=== PATIENT | female | born 1990 | race Caucasian/White ===

== ENCOUNTER 2018-07-06 18:04 | Inpatient (IN) ==
[2018-07-06] MEDS ORDERED: Naloxone Inj 0.4 MG/ML Vial IV.PUSH PRN (18:51)
[2018-07-06] MEDS ORDERED: Sod Chloride 0.9% Inj 1,000 ML IV.CONT PRN (18:51)
[2018-07-06] MEDS ORDERED: Sodium Chlor 0.9% Inj 500 ML IV.SIG PRN (18:51)
[2018-07-06] MEDS ORDERED: fentaNYL Citrate Inj 100 MCG/2 ML Ampul IV.PUSH PRN ×2 (18:51)
[2018-07-06] MEDS ORDERED: Citric Acid/Sodium Citrate Liq 30 ML UDC PO SCH (19:00)
[2018-07-06] MEDS ORDERED: Sod Chloride 0.9% Inj 1,000 ML IRRIGATION SCH (19:00)
--- NOTE | 2018-07-06 19:08 | P.HPOB ---
History of Present Illness Service: obstetrics Primary Care Physician: NOT REQUIRED Chief Complaint: induction for polyhydramnios at term History of Present Illness: 28 yo G1 with EDC 07/14/18 presents for scheduled labor induction due to polyhydramnios at term. Gestational diabetic, diet controlled. Rubella non- immune. Other complications of include measuring large for dates, EFW 95%tile at 36 weeks. Pt aware of risks of induction and suspected macrosomia, declines option of primary . GBS negative. C/o pelvic pressure and irregular contractions, no leakage of fluid or vaginal bleeding. Good movement. Pain 2/10 low pelvis with radiation to low back. Weeks Gestation:: 39 Para: 0 : 1 - Inpatient Certification I certify that the inpatient services were ordered in accordance with Medicare regulations governing the order. This includes certification that hospital inpatient services are reasonable and necessary and in the case of services not specified as inpatient-only under 42 CFR 419.22(n), that they are appropriately provided as inpatient services in accordance to with the 2-midnight benchmark under 43 CFR 412.3(e) Estimated Total Length of Stay (Days): 5 Plans for Post Hospital Care: Home Review of Systems All other systems reviewed negative except as stated in HPI [facility] - Medical History Medical History: Medical History (Last Updated 07/06/18 @ 19:01 by Suellen Edwards MD) Gestational diabetes (Acute) Hx of wisdom tooth extraction - Family History Family History: Family History (Last Updated 07/06/18 @ 19:02 by Suellen Edwards MD) Other No significant family history - Social History I have reviewed the patient's Social History: Yes - Tobacco History Second Hand Smoke Exposure: No Tobacco Use In Past 30 Days: No Smoking Status: Never smoker - Alcohol History How Often Do You Have a Drink Containing Alcohol: Never - Substance Use History Substance History: No History of Abuse - Travel History History of Recent Travel: No Recent Travel in the [place] Within the Last 8 Weeks: No Recent Travel Out of the Country Within the Last 8 Weeks: No Medications and Allergies Active Medications: Active Medications Citric Acid/Sodium Citrate (Sodium Citrate/Citric Acid Liq) 30 ml PO [employer] MICHAEL Stop: 07/10/18 18:59 Dinoprostone (Cervidil Vag Insert) 10 mg VAGINAL ONCE ONE Stop: 07/06/18 18:52 Fentanyl Citrate (Fentanyl Inj) 50 mcg IV.PUSH Q1H PRN PRN Reason: Pain Scale 3 - 5 Fentanyl Citrate (Fentanyl Inj) 100 mcg IV.PUSH Q1H PRN PRN Reason: PAIN SCALE 6 TO 10 Lactated Ringer's (Lr 1000 Ml Inj) 1,000 mls @ 3,000 mls/hr IV.SIG UNSCH PRN PRN Reason: compromise or epidural Sodium Chloride (Ns Inj) 500 mls @ 1,000 mls/hr IV.SIG UNSCH PRN PRN Reason: SEE LABEL COMMENTS Sodium Chloride (Ns Inj) 1,000 mls @ 100 mls/hr IV.CONT .Q10H PRN PRN Reason: SEE LABEL COMMENTS Sodium Chloride (Ns Inj) 1,000 mls @ 0 mls/hr IRRIGATION .Q0M MICHAEL Stop: 07/07/18 18:59 Oxytocin (Pitocin 30 Units/Ns 500 Ml Premix) 30 units in 500 mls @ 999 mls/hr IV.SIG BOLUS ONE Stop: 07/06/18 19:21 Lidocaine HCl (Xylocaine 1% Inj) 0.1 ml I-DERMAL PRN PRN PRN Reason: For IV start Stop: 07/09/18 18:50 Lidocaine HCl (Xylocaine 1% Inj) 10 ml INFILTRATN PRN PRN PRN Reason: For episiotomy repair Stop: 07/08/18 18:50 Mineral Oil (Muri-Lube Oil) 10 ml TOPICAL PRN PRN PRN Reason: PRN perineal massage Naloxone HCl (Narcan Inj) 0.1 mg IV.PUSH Q2M PRN PRN Reason: for opiate reversal Ondansetron HCl (Zofran Inj) 4 mg IV.PUSH Q6H PRN PRN Reason: NAUSEA OR VOMITING Sodium Chloride (Ns Flush) 2 ml IV.FLUSH BID MICHAEL Sodium Chloride (Ns Flush) 2 ml IV.FLUSH PRN PRN PRN Reason: FLUSH AFTER USING IV ACCESS Allergies Allergy/AdvReac Type Severity Reaction Status Date / Time No Known Allergies Allergy Verified 07/06/18 18:30 Home Medications Medication Instructions Recorded Confirmed Type vit-iron fum-folic ac 1 tab PO DAILY 07/06/18 07/06/18 History [ Vitamin] Exam Vital signs: Vital Signs 07/06/18 18:25 07/06/18 18:32 07/06/18 18:50 Temperature 99.2 F Pulse Rate 96 H 96 H 103 H Respiratory Rate 18 Blood Pressure 139/85 Intake & Output 07/05/18 07/06/18 07/06/18 18:59 06:59 18:59 Weight 101 kg Other: Weight On Admission 101 kg - Constitutional no acute distress - Routine HEENT Exam Head: Present: normocephalic, atraumatic Eye: Present: EOMI, PERRL ENT: Present: mucous membranes moist - Routine Neck Exam Present: supple, full ROM - Routine Chest/Breast/Axilla Exam Chest wall: Absent: tenderness, mass - Routine Respiratory Exam Absent: accessory muscle use, respiratory distress - Routine Cardiovascular Exam Present: RRR. Absent: bradycardia - Routine Abdominal Exam Comments: gravid larger than dates - Routine Extremities Exam Present: edema (b/l LE to shins), pulses intact - Routine Skin Exam Present: intact. Absent: cyanosis - Routine Neurological Exam Present: alert, oriented X3 Results - Labs Group B Strep: Negative Caprini VTE Risk Assessment Caprini VTE Risk Assessment: No/Low Risk (score <= 1) VTE Pharmacological Exception Reason: Epidural catheter Caprini Risk Assessment Model: Point Value = 1 Point Value = 2 Point Value = 3 Point Value = 5 Age 41-60 Minor surgery BMI > 25 kg/m2 Swollen legs Varicose veins or History of unexplained or recurrent spontaneous Oral contraceptives or hormone replacement Sepsis (< 1 month) Serious lung disease, including pneumonia (< 1 month) Abnormal pulmonary function Acute myocardial infarction Congestive heart failure (< 1 month) History of inflammatory bowel disease Medical patient at bed rest Age 61-74 Arthroscopic surgery Major open surgery (> 45 min) Laparoscopic surgery (> 45 min) Malignancy Confined to bed (> 72 hours) Immobilizing plaster cast Central venous access Age >= 75 History of VTE Family history of VTE Factor V Leiden Prothrombin [id number] Lupus anticoagulant Anticardiolipin antibodies Elevated serum homocysteine Heparin-induced thrombocytopenia Other congenital or acquired thrombophilia Stroke (< 1 month) Elective arthroplasty Hip, pelvis, or leg fracture Acute spinal cord injury (< 1 month) Prophylaxis Regimen: Total Risk Factor Score Risk Level Prophylaxis Regimen 0-1 Low Early ambulation 2 Moderate Order ONE of the following: *Sequential Compression Device (SCD) *Heparin 5000 units SQ BID 3-4 Higher Order ONE of the following medications: *Heparin 5000 units SQ TID *Enoxaparin/Lovenox 40 mg SQ daily (WT < 150 kg, CrCl > 30 mL/min) *Enoxaparin/Lovenox 30 mg SQ daily (WT < 150 kg, CrCl > 10-29 mL/min) *Enoxaparin/Lovenox 30 mg SQ BID (WT < 150 kg, CrCl > 30 mL/min) AND/OR *Sequential Compression Device (SCD) 5 or more Highest Order ONE of the following medications: *Heparin 5000 units SQ TID (Preferred with Epidurals) *Enoxaparin/Lovenox 40 mg SQ daily (WT < 150 kg, CrCl > 30 mL/min) *Enoxaparin/Lovenox 30 mg SQ daily (WT < 150 kg, CrCl > 10-29 mL/min) *Enoxaparin/Lovenox 30 mg SQ BID (WT < 150 kg, CrCl > 30 mL/min) AND *Sequential Compression Device (SCD) Assessment and Plan - Diagnosis (1) 39 weeks gestation of Code(s): Z3A.39 - 39 weeks gestation of Status: Acute (2) Polyhydramnios Code(s): O40.9XX0 - Polyhydramnios, unspecified trimester, not applicable or unspecified Status: Acute (3) Gestational diabetes Code(s): O24.419 - Gestational diabetes mellitus in , unspecified control Status: Acute - Plan 28 yo G1 with funez male IUP at 38w6d admit for labor induction due to polyhydramnios. 1) IOL: start with cervidil, pt aware she is unfavorable for induction and suspected macrosomic fetus; pt aware or risks of induction including distress and possibility of ; consents signed; re-evaluate in AM for additional induction methods as needed 2) GBS negative 3) Rubella non-immune - recommend vaccine PP 4) gestational diabetes, diet controlled: weekly testing had been reassuring with 03/09 BPP yesterday but PAUL 26cm 5) polyhydramnios: PAUL 26cm, known gestational diabetic 6) status: vertex, male, EFW >9#; shoulder dystocia precautions if pt progresses; Cat I tracing on admission note: pt had Tdap in office 06/10/2018, declined Flu vaccine dispo: not meeting criteria, anticipate d/c 2-3d PP Discharge Planning: routine
[2018-07-06] MEDS ORDERED: Oxytocin 30 Units/500ml Premix 30 UNITS/500 ML BAG IV.SIG ONE (19:30)
[2018-07-06 20:50] LABS: Baso % (Auto) 0.3 % (0.0-2.0); Eos # (Auto) 0.1 th/mm3 (0.0-0.4); Hematocrit 40.2 % (35.0-46.0); Hemoglobin 13.3 gm/dL (11.6-15.3); Lymph # (Auto) 1.6 th/mm3 (1.0-4.8); Lymph % (Auto) 16.6 % (9.0-44.0); Mean Corpuscular HGB Conc 33.1 % (32.0-36.0); Mean Corpuscular Hemoglobin 31.6 pg (27.0-34.0); Mean Corpuscular Volume 95.5 fL (80.0-100.0); Mean Platelet Volume 10.8 fL (7.0-11.0); Mono # (Auto) 0.8 th/mm3 (0.0-0.9); Mono % (Auto) 7.8 % (0.0-8.0); Neut # (Auto) 7.3 th/mm3 (1.8-7.7); Neut % (Auto) 74.3 % (16.0-70.0); Platelet Count 176 th/mm3 (150-450); Red Blood Count 4.21 mil/mm3 (4.00-5.30); Red Cell Distribution Width 14.5 % (11.6-17.2); White Blood Count 9.8 th/mm3 (4.0-11.0)
[2018-07-06 21:00] LABS: Amphetamine Urine With Conf Neg (Neg); Benzodiazepine Urine With Conf Neg (Neg); Bilirubin,Urine Negative (Negative); Clarity,Urine Hazy (Clear); Cocaine Urine With Conf Neg (Neg); Color,Urine Straw (Yellw/Straw); Glucose,Urine (UA) Negative (Negative); Leukocyte Esterase,Urine Trace (Negative); Mucus,Urine Few /lpf (Occasional); Nitrite,Urine Negative (Negative); Opiates Urine With Conf Neg (Neg); Specific Gravity,Urine 1.005 (1.002-1.035); Squamous Epithelial Cell,Urine 1 /hpf (0-5)
[2018-07-06 21:14] LABS: Anion Gap 8 meq/L (5-15); Aspartate Aminotransferase 14 U/L (15-37); Blood Urea Nitrogen 13 mg/dL (7-18); Carbon Dioxide 23.7 meq/L (21.0-32.0); Chloride 105 meq/L (98-107); Glomerular Filtration Rate Greater Than 89 mL/min (>89); Glucose,Random 85 mg/dL (74-106); Potassium 3.4 meq/L (3.5-5.1); Sodium 137 meq/L (136-145)
[2018-07-06 21:15] LABS: Alanine Aminotransferase 17 U/L (10-53); Cannabinoid Urine With Conf Neg (Neg)
[2018-07-06 21:17] LABS: Alkaline Phosphatase 120 U/L (45-117); Total Protein 6.9 g/dL (6.4-8.2)
[2018-07-06] MEDS ORDERED: Zolpidem Tartrate 5 MG Tablet PO ONE (22:30)
[2018-07-07] MEDS ORDERED: Oxytocin 30 Units/500ml Premix 30 UNITS/500 ML BAG IV.CONT PRN (08:03)
--- NOTE | 2018-07-07 08:12 | P.OBGPN ---
To bedside to evaluate patient. Cervidil removed by nurses just prior to my arrival. SVE /-3. Able to AROM with copious clear fluid. IUPC placed. Will order pitocin. Ok for regular diet for breakfast then clears after that. D/w pt again suspect macrosomia and may need if labor does not progress. Pt voices understanding. Will re-evaluate later today.
[2018-07-07] MEDS ORDERED: fentaNYL 2MCG-Bupiv 0.125% Epi 150 ML EPIDURAL ONE (13:32)
[2018-07-07] MEDS ORDERED: Lidocaine PF 1% Inj 5 ML Vial ONE (14:08)
[2018-07-07] MEDS ORDERED: Sodium Chlor 0.9% Inj 10 ML ONE (14:08)
[2018-07-07] MEDS ORDERED: Lidocaaine 1.5%/Epinephrine 1:200,000 PF Inj 5 ML Amp ONE (14:08)
[2018-07-07] MEDS ORDERED: fentaNYL Citrate Inj 100 MCG/2 ML Ampul EPIDURAL ONE (15:00)
[2018-07-07] MEDS ORDERED: fentaNYL 2MCG-Bupiv 0.125% Epi 150 ML EPIDURAL PRN (15:00)
--- NOTE | 2018-07-07 18:41 | P.OBGPN ---
Pt examined at 5pm and again now. SVE /-3, significant molding and asynclitic; no change appreciated between exams. Projected weight 9+ pounds based on extrapolation from prior growth u/s. Discussed with patient that she has likely cephalopelvic disproportion and needs a CD. Patient discussed with Dr. Edwards who agrees with proceeding with CD delivery. Reviewed surgery, postoperative care. Discussed that she can have a tolac if this is a ltcd.
[2018-07-07] MEDS ORDERED: ceFAZolin 2 GM Premix Inj 2 GM/50 ML PIGGYBACK IV.SIG PRN (18:42)
[2018-07-07] MEDS ORDERED: Citric Acid/Sodium Citrate Liq 30 ML UDC PO SCH (18:45)
[2018-07-07] MEDS ORDERED: Morphine Sulfate PF Inj 5 MG/10 ML Ampul ONE (19:32)
[2018-07-07] MEDS ORDERED: Zolpidem Tartrate 5 MG Tablet PO PRN (20:35)
[2018-07-07] MEDS ORDERED: Oxytocin 30 Units/500ml Premix 30 UNITS/500 ML BAG IV.SIG ONE (20:35)
[2018-07-07] MEDS ORDERED: Simethicone 80 MG Chew Tablet PO PRN (20:35)
--- NOTE | 2018-07-07 20:52 | P.OBDELI ---
Procedure Note - Pre Op Diagnosis (1) Arrested active phase of labor (2) 39 weeks gestation of (3) Polyhydramnios (4) Gestational diabetes - Post Op Diagnosis (1) S/P primary low transverse (2) 39 weeks gestation of (3) Polyhydramnios (4) Gestational diabetes (5) Arrested active phase of labor Performed by: Suellen Edwards MD Procedure: Primary Low Transverse Section Indication for Delivery: Other (arrest of descent in labor) Informed Consent Obtained: For anesthesia, For procedure Confirmed Correct: Patient, Procedure, Site, Time-out taken Anesthesia: Epidural Medication Prior to Procedure: As documented in eMAR Monitoring During Procedure: Blood pressure monitoring, pipe coremaker, doppler, Pulse oximetry Urinary Catheter: ml urine output (300), Other (already in place as part of labor process) Sterile Preparation: Duraprep, In usual fashion, With drapes to expose affected area Position: Supine with wedge to right side - Operative Features Skin Incision: Pfannenstiel Uterine Incision: Low transverse w/knife / scissors Membranes Ruptured: Previously, Amount of liquid (copious), Appearance of fluid (clear) Presentation: Vertex Status of : Viable, Cord blood, Nursery present Placenta Delivered: Intact Medications: Antibiotics (ancef 2g IV) Estimated blood loss (mL): 700 Procedure Tolerated: Well Maternal Condition: Stable Baby Condition: Stable Procedure in Detail: see dictated op note for full details - Infant : Male Male A Infant Delivery Date: 07/07/18 Delivery Time: 20:01 Weight: 4.06 kg Delivery of : Uneventful score (1 min): 9 score (5 min): 9
[2018-07-07] MEDS ORDERED: Oxytocin 30 Units/500ml Premix 30 UNITS/500 ML BAG ONE (22:09)
--- NOTE | 2018-07-07 22:09 | MP ---
cc: Suellen Edwards MD DATE OF OPERATION: 07/07/2018 PREOPERATIVE DIAGNOSES: 1. Tinajero intrauterine at 39 weeks. 2. Gestational diabetes. 3. Polyhydramnios. 4. Arrested active phase of labor. POSTOPERATIVE DIAGNOSES: 1. Tinajero intrauterine at 39 weeks. 2. Gestational diabetes. 3. Polyhydramnios. 4. Arrested active phase of labor. 5. Postoperative day #0. INDICATIONS: Marylou Amaya is a 28-year-old 1, now para 1-0-0-1, who was seen and evaluated in the office during her care with gestational diabetes, which was diet controlled, but due to this diagnosis, she was receiving weekly testing, which at 38 weeks and 6 days showed a diagnosis polyhydramnios. As such, it was recommended that the patient be induced. She was brought in on the evening of 07/06/2018. With a Cervidil induction method, she progressed to 5 cm but never progressed past a -3 station. Due to suspected cephalopelvic disproportion and macrosomia, it was discussed with the patient the recommendation for delivery. The patient consented and was taken for procedure. PROCEDURE PERFORMED: Primary low transverse delivery. SURGEON: Suellen Edwards MD TYPE OF ANESTHESIA: Epidural. ESTIMATED BLOOD LOSS: 700 mL. INTRAVENOUS FLUID REPLACEMENT: 1500 mL. URINE OUTPUT: 200 mL of clear urine draining in the Sherman bag at the end of the procedure. PROPHYLAXIS: Ancef 2 grams was given preoperatively and SCDs were on and functioning throughout the entire case. COMPLICATIONS: None. COUNTS: Sponge, lap, instrument and needle counts were correct x 2 at the conclusion of the procedure. INTRAOPERATIVE FINDINGS: Include a vigorous viable male infant weighing 4060 grams, correlating to 8 pounds, 15.2 ounces, and was in the vertex position, but asynclitic with significant caput, Apgars of 9 and 9, clear amniotic fluid, normal intact placenta. Patient has normal-appearing bladder, bilateral fallopian tubes and ovaries. SPECIMENS: None. PROCEDURE IN DETAIL: After reviewing the informed consent, the patient was taken to the operating suite, where a timeout was performed to identify the patient, the planned procedure and any known allergies to drugs or drug products. The patient's epidural and Sherman catheter were already in place as part of the labor process. The patient was laid in dorsal supine position and the abdomen was prepped and draped in normal sterile fashion. A scalpel was used to make a Pfannenstiel-type skin incision. The incision was then brought down to the underlying layer of fascia with the Bovie. The fascia was incised in the midline. The incision was extended laterally with sharp dissection using Heart scissors. Superior and inferior aspects of the fascial incision were elevated with Livia clamps. Rectus muscles were dissected off sharply with Heart scissors. Rectus muscles were then in the midline. Peritoneum was elevated with a hemostat, entered sharply with Metzenbaum scissors and incision was extended laterally with good visualization of intra-abdominal contents. A bladder blade was placed. Bladder flap was not made. A low transverse uterine incision was made with the scalpel. This was extended bluntly. 's head was grasped, flexed and elevated out through the incision. With gentle maneuvering, the rest of the 's body delivered. was immediately crying and vigorous upon delivery. Delayed cord clamping of 45 seconds was performed. was then handed off to the waiting nursery staff. Cord blood sample was taken. Placenta was delivered using gentle cord traction and fundal massage. Uterus was then exteriorized and cleared of all clots and debris with sterile moist lap sponges. The hysterotomy was repaired in a double-layer, first in a running locked layer and then in an imbricating layer with #1 chromic. The posterior cul-de-sac was irrigated copiously with warm sterile saline. The uterus was returned to the abdomen. The repaired hysterotomy was reexamined and excellent hemostasis was noted. A layer of Interceed was placed over the hysterotomy to act as an adhesion barrier. The peritoneum was then closed in a running layer of 2-0 chromic. The fascia was closed in a running layer with #1 Vicryl. The subcutaneous tissue was irrigated and hemostasis was ensured with the Bovie. A series of interrupted sutures using 2-0 chromic was used to close the subcutaneous space. The skin was then closed in a subcuticular fashion with 3-0 Monocryl. The skin was cleaned and dried and Steri-Strips were placed as well as a standard dressing. The procedure concluded at this point. The patient tolerated the procedure well without complication. DISPOSITION: The patient's estimated length of stay is 3 postoperative days. is nursery status. MD Geoff Heard , 08:57 PM , 09:05 PM MISSY
[2018-07-07] MEDS ORDERED: Naloxone Inj 0.4 MG/ML Vial IV.PUSH PRN (22:32)
[2018-07-08] MEDS ORDERED: Oxytocin 30 Units/500ml Premix 30 UNITS/500 ML BAG IV.SIG PRN (01:35)
[2018-07-08 06:08] LABS: Baso % (Auto) 0.1 % (0.0-2.0); Hematocrit 31.7 % (35.0-46.0); Hemoglobin 10.8 gm/dL (11.6-15.3); Lymph % (Auto) 5.7 % (9.0-44.0); Mean Corpuscular Hemoglobin 32.4 pg (27.0-34.0); Mean Corpuscular Volume 95.3 fL (80.0-100.0); Mean Platelet Volume 10.4 fL (7.0-11.0); Mono # (Auto) 1.6 th/mm3 (0.0-0.9); Mono % (Auto) 8.9 % (0.0-8.0); Neut # (Auto) 15.3 th/mm3 (1.8-7.7); Neut % (Auto) 85.3 % (16.0-70.0); Platelet Count 153 th/mm3 (150-450); Red Blood Count 3.33 mil/mm3 (4.00-5.30); Red Cell Distribution Width 14.5 % (11.6-17.2); White Blood Count 17.9 th/mm3 (4.0-11.0)
--- NOTE | 2018-07-08 07:37 | P.PNOB ---
Subjective Post op day: 1 Interval history: POD#1; stable, doing well Objective Vital Signs/I&O: Vital Signs 07/07/18 08:20 07/07/18 09:45 07/07/18 10:12 Temperature 99.4 F Pulse Rate 86 100 H 97 H Respiratory Rate 18 18 18 Blood Pressure 122/69 124/73 107/68 07/07/18 10:45 07/07/18 11:14 07/07/18 11:45 Temperature Pulse Rate 98 H 92 H 90 Respiratory Rate 18 18 Blood Pressure 118/70 116/65 122/74 07/07/18 12:23 07/07/18 12:24 07/07/18 12:25 Temperature 98.5 F Pulse Rate 91 H Respiratory Rate 18 Blood Pressure 122/64 07/07/18 12:58 07/07/18 13:27 07/07/18 13:28 Temperature Pulse Rate 78 87 Respiratory Rate 18 Blood Pressure 110/61 109/63 07/07/18 13:56 07/07/18 14:05 07/07/18 14:50 Temperature Pulse Rate 107 H 89 88 Respiratory Rate 18 Blood Pressure 128/78 101/56 L 119/67 07/07/18 15:01 07/07/18 15:15 07/07/18 16:13 Temperature Pulse Rate 90 88 Respiratory Rate 18 Blood Pressure 129/69 110/68 07/07/18 16:14 07/07/18 17:16 07/07/18 17:17 Temperature 99.4 F Pulse Rate 85 94 H Respiratory Rate 18 Blood Pressure 118/50 L 106/62 07/07/18 17:53 07/07/18 18:27 07/07/18 19:20 Temperature 99.4 F Pulse Rate 95 H 92 H Respiratory Rate 18 Blood Pressure 112/61 119/60 07/07/18 20:45 07/07/18 21:00 07/07/18 21:15 Temperature 99.0 F Pulse Rate 91 H 89 85 Respiratory Rate 18 16 16 Blood Pressure 102/50 L 113/58 L 99/55 L 07/07/18 21:30 07/07/18 21:45 07/07/18 22:01 Temperature 98.4 F Pulse Rate 79 78 Respiratory Rate 17 18 Blood Pressure 109/47 L 113/56 L 07/07/18 22:30 07/08/18 02:00 07/08/18 05:00 Temperature 98.3 F 98.3 F 98.5 F Pulse Rate 73 72 72 Respiratory Rate 18 Blood Pressure 116/59 L 116/89 109/69 Intake & Output 07/07/18 07/08/18 07/08/18 18:59 06:59 18:59 Intake Total 100 / 100 Balance 100 / 100 Intake: IV 100 / 100 Ofirmev Inj 1,000 mg In 100 ml 100 / 100 @ 400 mls/hr IV.SIG ONCE ONE Rx #:[id number] Result Diagrams: 07/08/18 04:47 07/06/18 18:30 Objective Remarks: GENERAL: Well-nourished, well-developed patient. CARDIOVASCULAR: Regular rate and rhythm without murmurs, gallops, or rubs. RESPIRATORY: Breath sounds equal bilaterally. No accessory muscle use. ABDOMEN/GI: Abdomen soft, non-tender, bowel sounds present. Incision: Clean, dry and intact. Fundus: Firm, non-tender at umbilicus. GENITOURINARY: Light to moderate bleeding. EXTREMITIES: No cyanosis or edema, non-tender, without signs of DVT. Medications and IVs: Active Medications Acetaminophen (Tylenol) 650 mg PO Q6H PRN PRN Reason: PAIN SCALE 1 TO 2 Diphenhydramine HCl (Benadryl) 50 mg PO Q6H PRN PRN Reason: MILD TO MODERATE ITCHING Stop: 07/08/18 22:31 Diphenhydramine HCl (Benadryl Inj) 25 mg IV.PUSH Q6H PRN PRN Reason: MILD TO MODERATE ITCHING Stop: 07/08/18 22:31 Diphtheria/Pertussis/Tetanus Vacc (Boostrix Vaccine Inj) 0.5 ml IM .ONCE ONE Stop: 07/08/18 16:01 Ephedrine Sulfate (Ephedrine/Ns Syringe) 10 mg IV.PUSH UNSCH PRN PRN Reason: SEE LABEL COMMENTS Stop: 07/08/18 14:36 Sodium Chloride (Ns Inj) 500 mls @ 1,000 mls/hr IV.SIG UNSCH PRN PRN Reason: SEE LABEL COMMENTS Sodium Chloride (Ns Inj) 1,000 mls @ 100 mls/hr IV.CONT .Q10H PRN PRN Reason: SEE LABEL COMMENTS Cefazolin Sodium/Dextrose (Ancef 2 Gm Premix Inj) 2 gm in 50 mls @ 100 mls/hr IV.SIG [employer]DER PRN PRN Reason: SEE DOSE INSTRUCTIONS Stop: 07/08/18 18:41 Last Admin: 07/07/18 19:39 Dose: 100 mls/hr Lactated Ringer's (Lr 1000 Ml Inj) 1,000 mls @ 100 mls/hr IV.CONT .Q10H MICHAEL Stop: 07/08/18 21:34 Last Admin: 07/08/18 03:34 Dose: 100 mls/hr Oxytocin (Pitocin 30 Units/Ns 500 Ml Premix) 30 units in 500 mls @ 100 mls/hr IV.SIG UNSCH PRN PRN Reason: Heavy bleeding Ibuprofen (Motrin) 800 mg PO Q8H PRN PRN Reason: cramping Ketorolac Tromethamine (Toradol Inj) 30 mg IM Q6H PRN PRN Reason: SEE LABEL COMMENTS Stop: 07/12/18 20:34 Last Admin: 07/08/18 05:52 Dose: 30 mg Lidocaine HCl (Xylocaine 1% Inj) 0.1 ml I-DERMAL PRN PRN PRN Reason: For IV start Stop: 07/09/18 18:50 Lidocaine HCl (Xylocaine 1% Inj) 10 ml INFILTRATN PRN PRN PRN Reason: For episiotomy repair Stop: 07/08/18 18:50 Measles/Mumps/Rubella Vaccine Live (M-M-R Ii Vaccine Inj) 0.5 ml SQ .ONCE ONE Stop: 07/08/18 16:01 Mineral Oil (Muri-Lube Oil) 10 ml TOPICAL PRN PRN PRN Reason: PRN perineal massage Miscellaneous Information (Misc Information) 1 each OTHER UNSCH PRN PRN Reason: SEE LABEL COMMENTS Stop: 07/08/18 14:36 Miscellaneous Information (Misc Information) 1 each OTHER UNSCH PRN PRN Reason: SEE LABEL COMMENTS Stop: 07/08/18 14:36 Miscellaneous Information (Misc Nursing Information) 1 each OTHER UNSCH PRN PRN Reason: SEE LABEL COMMENTS Stop: 07/08/18 22:31 Miscellaneous Information (Misc Nursing Information) 1 each OTHER UNSCH PRN PRN Reason: SEE LABEL COMMENTS Stop: 07/08/18 22:31 Naloxone HCl (Narcan Inj) 0.1 mg IV.PUSH Q2M PRN PRN Reason: for opiate reversal Naloxone HCl (Narcan Inj) 0.4 mg IV.PUSH UNSCH PRN PRN Reason: SEE LABEL COMMENTS Stop: 07/08/18 22:31 Ondansetron HCl (Zofran Inj) 4 mg IV.PUSH Q6H PRN PRN Reason: NAUSEA OR VOMITING Oxycodone/Acetaminophen (Percocet 5/325 Mg) 1 tab PO Q4H PRN PRN Reason: PAIN SCALE 3 TO 5 Oxycodone/Acetaminophen (Percocet 5/325 Mg) 2 tab PO Q4H PRN PRN Reason: PAIN SCALE 6 TO 10 Senna/Docusate Sodium (Vicki-Colace) 2 tab PO Q12H PRN PRN Reason: CONSTIPATION Simethicone (Mylicon Chew) 80 mg PO QID PRN PRN Reason: FLATULENCE Sodium Chloride (Ns Flush) 2 ml IV.FLUSH BID MICHAEL Last Admin: 07/07/18 21:48 Dose: Not Given Sodium Chloride (Ns Flush) 2 ml IV.FLUSH PRN PRN PRN Reason: FLUSH AFTER USING IV ACCESS Zolpidem Tartrate (Ambien) 5 mg PO HS PRN PRN Reason: INSOMNIA Assessment and Plan - Diagnosis (1) 39 weeks gestation of Code(s): Z3A.39 - 39 weeks gestation of Status: Acute (2) Polyhydramnios Code(s): O40.9XX0 - Polyhydramnios, unspecified trimester, not applicable or unspecified Status: Acute (3) Gestational diabetes Code(s): O24.419 - Gestational diabetes mellitus in , unspecified control Status: Acute - Plan 28 yo G1 with funez male IUP at 38w6d admit for labor induction due to polyhydramnios. 1) IOL: start with cervidil, pt aware she is unfavorable for induction and suspected macrosomic fetus; pt aware or risks of induction including distress and possibility of ; consents signed; re-evaluate in AM for additional induction methods as needed 2) GBS negative 3) Rubella non-immune - recommend vaccine PP 4) gestational diabetes, diet controlled: weekly testing had been reassuring with 03/09 BPP yesterday but PAUL 26cm 5) polyhydramnios: PAUL 26cm, known gestational diabetic 6) status: vertex, male, EFW >9#; shoulder dystocia precautions if pt progresses; Cat I tracing on admission note: pt had Tdap in office 06/10/2018, declined Flu vaccine dispo: not meeting criteria, anticipate d/c 2-3d PP. 07/08/18 POD#1, s/p LTCD, stable, advance care,activity. Discharge Planning: routine
[2018-07-08] MEDS ORDERED: Measles/Mumps/Rubella Vaccine Inj 0.5 ML Vial SQ ONE (16:00)
[2018-07-08] MEDS ORDERED: Diphtheria/Tetanus/Pertussis Vaccine Inj 0.5 ML Syringe IM ONE (16:00)
[2018-07-08] MEDS: Acetaminophen 325 MG Tablet PO PRN (19:54)
[2018-07-08] MEDS: Senna/Docusate Sodium 8.6/50 MG Tablet PO PRN (19:55)
[2018-07-09] MEDS: Acetaminophen 325 MG Tablet PO PRN ×2 (02:05→11:36)
--- NOTE | 2018-07-09 10:27 | P.PNOB ---
Subjective Post op day: 2 Interval history: POD#2, Doing well, pain well controlled, able to ambulate ,discussed discharge plan for tomorrow Objective Vital Signs/I&O: Vital Signs 07/08/18 20:00 07/09/18 08:00 Temperature 97.9 F 98.8 F Pulse Rate 85 87 Respiratory Rate 18 18 Blood Pressure 107/61 101/62 Intake & Output 07/08/18 07/09/18 07/09/18 18:59 06:59 18:59 Output Total 1100 / 1100 Balance -1100 / -1100 Output: Urine Amount (Catheter) 1100 / 1100 Straight 1100 / 1100 Result Diagrams: 07/08/18 04:47 07/06/18 18:30 Objective Remarks: GENERAL: Well-nourished, well-developed patient. CARDIOVASCULAR: Regular rate and rhythm without murmurs, gallops, or rubs. RESPIRATORY: Breath sounds equal bilaterally. No accessory muscle use. ABDOMEN/GI: Abdomen soft, non-tender, bowel sounds present. Incision: Clean, dry and intact. Fundus: Firm, non-tender at umbilicus. GENITOURINARY: Light to moderate bleeding. EXTREMITIES: No cyanosis or edema, non-tender, without signs of DVT. Medications and IVs: Active Medications Acetaminophen (Tylenol) 650 mg PO Q6H PRN PRN Reason: PAIN SCALE 1 TO 2 Last Admin: 07/09/18 02:05 Dose: 650 mg Sodium Chloride (Ns Inj) 500 mls @ 1,000 mls/hr IV.SIG UNSCH PRN PRN Reason: SEE LABEL COMMENTS Sodium Chloride (Ns Inj) 1,000 mls @ 100 mls/hr IV.CONT .Q10H PRN PRN Reason: SEE LABEL COMMENTS Oxytocin (Pitocin 30 Units/Ns 500 Ml Premix) 30 units in 500 mls @ 100 mls/hr IV.SIG UNSCH PRN PRN Reason: Heavy bleeding Ibuprofen (Motrin) 800 mg PO Q8H PRN PRN Reason: cramping Last Admin: 07/09/18 10:17 Dose: 800 mg Ketorolac Tromethamine (Toradol Inj) 30 mg IM Q6H PRN PRN Reason: SEE LABEL COMMENTS Stop: 07/12/18 20:34 Last Admin: 07/08/18 05:52 Dose: 30 mg Lidocaine HCl (Xylocaine 1% Inj) 0.1 ml I-DERMAL PRN PRN PRN Reason: For IV start Stop: 07/09/18 18:50 Mineral Oil (Muri-Lube Oil) 10 ml TOPICAL PRN PRN PRN Reason: PRN perineal massage Naloxone HCl (Narcan Inj) 0.1 mg IV.PUSH Q2M PRN PRN Reason: for opiate reversal Ondansetron HCl (Zofran Inj) 4 mg IV.PUSH Q6H PRN PRN Reason: NAUSEA OR VOMITING Ondansetron HCl (Zofran Odt) 4 mg PO Q6H PRN PRN Reason: NAUSEA Oxycodone/Acetaminophen (Percocet 5/325 Mg) 1 tab PO Q4H PRN PRN Reason: PAIN SCALE 3 TO 5 Oxycodone/Acetaminophen (Percocet 5/325 Mg) 2 tab PO Q4H PRN PRN Reason: PAIN SCALE 6 TO 10 Senna/Docusate Sodium (Vicki-Colace) 2 tab PO Q12H PRN PRN Reason: CONSTIPATION Last Admin: 07/08/18 19:55 Dose: 2 tab Simethicone (Mylicon Chew) 80 mg PO QID PRN PRN Reason: FLATULENCE Sodium Chloride (Ns Flush) 2 ml IV.FLUSH BID MICHAEL Last Admin: 07/09/18 03:52 Dose: Not Given Sodium Chloride (Ns Flush) 2 ml IV.FLUSH PRN PRN PRN Reason: FLUSH AFTER USING IV ACCESS Zolpidem Tartrate (Ambien) 5 mg PO HS PRN PRN Reason: INSOMNIA Assessment and Plan - Diagnosis (1) 39 weeks gestation of Code(s): Z3A.39 - 39 weeks gestation of Status: Acute (2) Polyhydramnios Code(s): O40.9XX0 - Polyhydramnios, unspecified trimester, not applicable or unspecified Status: Acute (3) Gestational diabetes Code(s): O24.419 - Gestational diabetes mellitus in , unspecified control Status: Acute - Plan 28 yo G1 with funez male IUP at 38w6d admit for labor induction due to polyhydramnios. 1) IOL: start with cervidil, pt aware she is unfavorable for induction and suspected macrosomic fetus; pt aware or risks of induction including distress and possibility of ; consents signed; re-evaluate in AM for additional induction methods as needed 2) GBS negative 3) Rubella non-immune - recommend vaccine PP 4) gestational diabetes, diet controlled: weekly testing had been reassuring with 03/09 BPP yesterday but PAUL 26cm 5) polyhydramnios: PAUL 26cm, known gestational diabetic 6) status: vertex, male, EFW >9#; shoulder dystocia precautions if pt progresses; Cat I tracing on admission note: pt had Tdap in office 06/10/2018, declined Flu vaccine dispo: not meeting criteria, anticipate d/c 2-3d PP. 07/09/18 POD#2, s/p LTCD, stable, advance care,activity as tolerated, plan for d /c tomorrow, infant circ. today. Discharge Planning: routine; POD#3
[2018-07-09] MEDS: Senna/Docusate Sodium 8.6/50 MG Tablet PO PRN (18:15)
[2018-07-10] MEDS: Senna/Docusate Sodium 8.6/50 MG Tablet PO PRN (11:12)
--- NOTE | 2018-07-10 11:42 | P.PNOB ---
Subjective Post op day: 3 Interval history: POD#3, Stable, doing well, discharge planning Objective Vital Signs/I&O: Vital Signs 07/09/18 19:40 07/10/18 07:45 Temperature 98.3 F 98.2 F Pulse Rate 62 86 Respiratory Rate 18 16 Blood Pressure 117/65 121/68 Result Diagrams: 07/08/18 04:47 07/06/18 18:30 Objective Remarks: GENERAL: Well-nourished, well-developed patient. CARDIOVASCULAR: Regular rate and rhythm without murmurs, gallops, or rubs. RESPIRATORY: Breath sounds equal bilaterally. No accessory muscle use. ABDOMEN/GI: Abdomen soft, non-tender, bowel sounds present. Incision: Clean, dry and intact. Fundus: Firm, non-tender at umbilicus. GENITOURINARY: Light to moderate bleeding. EXTREMITIES: No cyanosis or edema, non-tender, without signs of DVT. Medications and IVs: Active Medications Acetaminophen (Tylenol) 650 mg PO Q6H PRN PRN Reason: PAIN SCALE 1 TO 2 Last Admin: 07/09/18 11:36 Dose: 650 mg Sodium Chloride (Ns Inj) 500 mls @ 1,000 mls/hr IV.SIG UNSCH PRN PRN Reason: SEE LABEL COMMENTS Sodium Chloride (Ns Inj) 1,000 mls @ 100 mls/hr IV.CONT .Q10H PRN PRN Reason: SEE LABEL COMMENTS Oxytocin (Pitocin 30 Units/Ns 500 Ml Premix) 30 units in 500 mls @ 100 mls/hr IV.SIG UNSCH PRN PRN Reason: Heavy bleeding Ibuprofen (Motrin) 800 mg PO Q8H PRN PRN Reason: cramping Last Admin: 07/10/18 04:17 Dose: 800 mg Ketorolac Tromethamine (Toradol Inj) 30 mg IM Q6H PRN PRN Reason: SEE LABEL COMMENTS Stop: 07/12/18 20:34 Last Admin: 07/08/18 05:52 Dose: 30 mg Mineral Oil (Muri-Lube Oil) 10 ml TOPICAL PRN PRN PRN Reason: PRN perineal massage Naloxone HCl (Narcan Inj) 0.1 mg IV.PUSH Q2M PRN PRN Reason: for opiate reversal Ondansetron HCl (Zofran Inj) 4 mg IV.PUSH Q6H PRN PRN Reason: NAUSEA OR VOMITING Ondansetron HCl (Zofran Odt) 4 mg PO Q6H PRN PRN Reason: NAUSEA Oxycodone/Acetaminophen (Percocet 5/325 Mg) 1 tab PO Q4H PRN PRN Reason: PAIN SCALE 3 TO 5 Last Admin: 07/10/18 04:17 Dose: 1 tab Oxycodone/Acetaminophen (Percocet 5/325 Mg) 2 tab PO Q4H PRN PRN Reason: PAIN SCALE 6 TO 10 Senna/Docusate Sodium (Vicki-Colace) 2 tab PO Q12H PRN PRN Reason: CONSTIPATION Last Admin: 07/10/18 11:12 Dose: 2 tab Simethicone (Mylicon Chew) 80 mg PO QID PRN PRN Reason: FLATULENCE Sodium Chloride (Ns Flush) 2 ml IV.FLUSH BID MICHAEL Last Admin: 07/10/18 05:23 Dose: Not Given Sodium Chloride (Ns Flush) 2 ml IV.FLUSH PRN PRN PRN Reason: FLUSH AFTER USING IV ACCESS Zolpidem Tartrate (Ambien) 5 mg PO HS PRN PRN Reason: INSOMNIA Assessment and Plan - Diagnosis (1) 39 weeks gestation of Code(s): Z3A.39 - 39 weeks gestation of Status: Acute (2) Polyhydramnios Code(s): O40.9XX0 - Polyhydramnios, unspecified trimester, not applicable or unspecified Status: Acute (3) Gestational diabetes Code(s): O24.419 - Gestational diabetes mellitus in , unspecified control Status: Acute - Plan 28 yo G1 with funez male IUP at 38w6d admit for labor induction due to polyhydramnios. 1) IOL: start with cervidil, pt aware she is unfavorable for induction and suspected macrosomic fetus; pt aware or risks of induction including distress and possibility of ; consents signed; re-evaluate in AM for additional induction methods as needed 2) GBS negative 3) Rubella non-immune - recommend vaccine PP 4) gestational diabetes, diet controlled: weekly testing had been reassuring with 8/8 BPP yesterday but PAUL 26cm 5) polyhydramnios: PAUL 26cm, known gestational diabetic 6) status: vertex, male, EFW >9#; shoulder dystocia precautions if pt progresses; Cat I tracing on admission note: pt had Tdap in office 06/10/2018, declined Flu vaccine dispo: not meeting criteria, anticipate d/c 2-3d PP. 07/09/18 POD#2, s/p LTCD, stable, advance care,activity as tolerated, plan for d /c tomorrow, infant circ. today. 07/10/18 POD#3, doing well, plan discharge home. RTO in 1 week Discharge Planning: routine; POD#3
== END 2018-07-10 14:00 | disposition home or self-care (01) ==
LOC: H2E 18:04 → H1EA 07-08 00:23
PROVIDERS: ADMIT Obstetrics & Gynecology; ATTEND Obstetrics & Gynecology